=== PATIENT | male | born 1950 | race Caucasian/White ===

== ENCOUNTER 2023-10-14 00:25 | Observation (INO) ==
[2023-10-14 01:06] LABS: ABS Lymphocytes 0.8 10^3/uL (1.0-4.8); ABS Monocytes 1.3 10^3/uL (0.0-1.1); ABS Neutrophils 17.1 10^3/uL (1.5-7.6); ABS Nucleated RBC 0.02 10^3/ul; Eosinophil % 0.1 %; Hematocrit 39.2 % (38-53); Hemoglobin 12.5 g/dL (13.2-16.3); Lymphocyte % 4.3 %; Mean Corpuscular Hemoglobin 27.2 pg (27-33); Mean Corpuscular Hgb Conc 31.9 g/dL (31-36); Mean Corpuscular Volume 85.2 fL (80-97); Mean Platelet Volume 8.4 fL (7.5-11.2); Nucleated Red Blood Cells % 0.1 %/100WBC (0.0-0.8); Platelet Count 151 10^3/uL (150-450); Red Cell Distribution Width 15.4 % (12-17); White Blood Count 19.3 10^3/uL (3.6-10.2)
[2023-10-14 01:23] LABS: Activated Partial Thrombo Time 32.2 seconds (26.0-38.0); INR 1.24 (0.83-1.13)
[2023-10-14] MEDS: Piperacillin/Tazobac 3.375 BAG 3.375 GM/100 ML BAG IV ONE (01:40)
[2023-10-14 01:53] LABS: Potassium 3.8 mmol/L (3.5-5.0)
[2023-10-14 01:54] LABS: Albumin 4.2 g/dL (3.2-5.2); Albumin/Globulin Ratio 1.5 (1-3); C Reactive Protein 28.41 mg/L (<8.01); Creatinine, Serum 1.98 mg/dL (0.67-1.17); Globulin 2.8 g/dL (2-4); Total Bilirubin 0.8 mg/dL (0.2-1.0)
[2023-10-14 02:37] LABS: High Sensitivity Troponin 1 Hr 19 pg/mL (<20)
[2023-10-14] MEDS ORDERED: Senna TAB 8.6 mg TAB PO PRN (03:10)
[2023-10-14] MEDS ORDERED: Polyethylene Glycol 3350 17 GM PACKET PO PRN (03:10)
[2023-10-14 03:24] LABS: Urine Appearance Clear; Urine Bilirubin Negative (Negative); Urine Blood 1+ (Negative); Urine Color Light-Yellow; Urine Glucose Trace (Negative); Urine Ketones Negative (Negative); Urine Nitrite Negative (Negative); Urine Protein Negative (Negative); Urine Specific Gravity 1.012 (1.002-1.030); Urine Urobilinogen Negative (Negative)
[2023-10-14 03:48] LABS: Urine Bacteria 1+ /HPF (Absent); Urine Red Blood Cell 1+(3-5/hpf) /HPF (0-Trace); Urine White Blood Cell 3+(>20/hpf) /HPF (0-Trace)
[2023-10-14] MEDS: cefTRIAXone 1 gm/50 mL D5W 1 GM/50 ML BAG IV SCH ×2 (05:22→11:39)
[2023-10-14] MEDS: Senna TAB 8.6 mg TAB PO SCH (08:37)
[2023-10-14 08:54] LABS: Hematocrit 34.9 % (38-53); Hemoglobin 11.5 g/dL (13.2-16.3); Mean Corpuscular Hemoglobin 27.6 pg (27-33); Mean Corpuscular Hgb Conc 32.9 g/dL (31-36); Mean Corpuscular Volume 84.1 fL (80-97); Mean Platelet Volume 8.6 fL (7.5-11.2); Platelet Count 135 10^3/uL (150-450); Red Blood Count 4.15 10^6/uL (4.06-5.63); Red Cell Distribution Width 15.2 % (12-17); White Blood Count 25.2 10^3/uL (3.6-10.2)
[2023-10-14 09:36] LABS: Calcium 8.5 mg/dL (8.6-10.3); Creatinine, Serum 1.85 mg/dL (0.67-1.17); Magnesium 1.7 mg/dL (1.9-2.7); Potassium 3.7 mmol/L (3.5-5.0)
[2023-10-14 09:55] LABS: ABS Basophils 0.2 10^3/uL (0.0-0.1); ABS Lymphocytes 1.2 10^3/uL (1.0-4.8); ABS Monocytes 2.5 10^3/uL (0.0-1.1); ABS Neutrophils 21.3 10^3/uL (1.5-7.6); Lymphocyte % 4.7 %
[2023-10-14] MEDS: Magnesium Sulfate 2 gm BAG 2 GM/50 ML BAG IVPB ONE (15:44)
[2023-10-15] MEDS: cefTRIAXone 1 gm/50 mL D5W 1 GM/50 ML BAG IV SCH (05:53)
[2023-10-15 08:14] LABS: Anion Gap 10 mmol/L (2-16); Blood Urea Nitrogen 33 mg/dL (6-24); CO2 Carbon Dioxide 19 mmol/L (22-32); Calcium 8.6 mg/dL (8.6-10.3); Chloride 106 mmol/L (101-111); Creatinine, Serum 1.92 mg/dL (0.67-1.17); Glucose 103 mg/dL (70-100); Sodium 135 mmol/L (135-145); eGFR CKD-EPI 36.3 (>60)
[2023-10-15 08:17] LABS: ABS Basophils 0.1 10^3/uL (0.0-0.1); ABS Lymphocytes 0.7 10^3/uL (1.0-4.8); ABS Monocytes 1.2 10^3/uL (0.0-1.1); ABS Neutrophils 14.8 10^3/uL (1.5-7.6); ABS Nucleated RBC 0.01 10^3/ul; Eosinophil % 0.2 %; Hematocrit 40.8 % (38-53); Hemoglobin 12.9 g/dL (13.2-16.3); Lymphocyte % 4.3 %; Mean Corpuscular Hemoglobin 27.2 pg (27-33); Mean Corpuscular Hgb Conc 31.6 g/dL (31-36); Mean Corpuscular Volume 86.1 fL (80-97); Mean Platelet Volume 8.6 fL (7.5-11.2); Nucleated Red Blood Cells % 0.1 %/100WBC (0.0-0.8); Platelet Count 115 10^3/uL (150-450); Red Blood Count 4.74 10^6/uL (4.06-5.63); Red Cell Distribution Width 15.8 % (12-17); White Blood Count 16.8 10^3/uL (3.6-10.2)
[2023-10-15 08:48] LABS: Potassium, Whole Blood 5.1 mmol/L (3.4-4.5)
[2023-10-15 14:09] VITALS: BP 120/72
[2023-10-16 15:27] LABS: Anaplasma phagocytophilum Negative (Negative); B. miyamotoi PCR, B Negative (Negative); Babesia divergens/MO-1 Negative (Negative); Babesia ducani Negative (Negative); Ehrlichia chaffeensis Negative (Negative); Ehrlichia ewingii/canis Negative (Negative); Ehrlichia muris eauclairensis Negative (Negative)
== END 2023-10-15 15:30 | disposition home or self-care (01) ==
LOC: EDHOLD 00:25 → ED 00:25 → SUATTDRO 03:10 → MEDTELE 10:46
PROVIDERS: ADMIT Student in an Organized Health Care Education/Training Program; ATTEND Hospitalist